=== PATIENT | female | born 1990 | race Hispanic/Latino ===

== ENCOUNTER 2025-08-10 11:03 | Emergency (ER) | payer SELFPAY ==
--- NOTE | 2025-08-10 11:35 | RAD REPORT ---
EXAM: CT brain without contrast HISTORY: DIZZINESS COMPARISON: None TECHNIQUE: Multiple contiguous axial images were obtained and a CT of the brain without contrast. Sag ittal and coronal reformats were performed. One or more of the following dose reduction techniques were used: Automated exposure control, adjust ment of the mA and/or kV according to patient size, and/or iterative reconstruction. FINDINGS: No evidence of hydrocephalus, intracranial hemorrhage, or extra-axial fluid collection. The brain is normal in morphology. No evidence of midline shift or areas of brain edema. The calvarium is intact. The visualized paranasal sinuses and mastoid air cells are essentially clear . IMPRESSION: No evidence of acute intracranial abnormality.
--- NOTE | 2025-08-10 12:06 | RAD REPORT ---
EXAMINATION: ONE VIEW CHEST XR CLINICAL INDICATION: CHEST PAIN TECHNIQUE: Frontal chest projection is submitted. Examination is limited by patient positioning and t echnique. COMPARISON: No prior exam. FINDINGS: The lungs are well inflated and clear. The heart is upper limit of normal in size. No displaced fract ures identified. IMPRESSION: No acute intrathoracic abnormalities.
[2025-08-10] MEDS ORDERED: NA CHLORIDE 0.9% 1,000 ML ONE (12:20)
[2025-08-10] MEDS ORDERED: ONDANSETRON 4 MG/2 ML VIAL ONE (12:20)
[2025-08-10 12:31] LABS: Absolute Lymphocytes (CBC) 1.9 K/uL (0.7-4.9); Hematocrit 34.1 % (36.0-45.0); Hemoglobin 11.0 g/dL (12.0-15.0); MCH 25.7 pg (27.0-35.0); MCHC 32.2 g/dL (32.0-36.0); MCV 79.8 fL (80-100); MPV 7.5 fL (7.6-11.3); Nucleated RBC Absolute Count 0.0 (0-0); Nucleated Red Blood Cells % 0.0 % (0-0); RBC Red Blood Cell Count 4.27 M/uL (3.86-4.86); White Blood Count 10.10 thou/uL (4.3-10.9)
[2025-08-10 12:52] LABS: Anion Gap 7.7 mEq/L (5.0-15.0); BUN Blood Urea Nitrogen 10 mg/dL (7-18); Glucose Level 100 mg/dL (74-106); Potassium 3.7 mEq/L (3.5-5.1)
[2025-08-10 12:53] LABS: Troponin High Sensitivity < 3.0 pg/mL (<58.9)
--- NOTE | 2025-08-10 13:24 | EDPHYS ---
Physician Documentation [facility] Name: Gina Jay Age: 34 yrs Sex: Female : 1990 Arrival Date: 08/10/2025 Time: 11:03 Bed 8 Private MD: ED Physician Darya Gandhi HPI: 08/10 11:15 This 34 yrs old Female presents to ER via Unassigned with complaints of dr5 Dizziness, Nausea, Headache. 11:15 The patient presents with dizziness, generalized weakness. Onset: The symptoms/episode dr5 began/occurred 3 day(s) ago. Patient is a 34-year-old female with history of anxiety coming in with 3 days of intermittent dizziness, headache, nausea, vomiting. Patient reports that she has history of anxiety and this feels different. Patient also reports intermittent chest pain that lasts seconds and then improves. Patient reports take ibuprofen for headache that improves her headache. Last menstrual period was 2 weeks ago. Patient states that she has some sick contacts at work but does not know what they have.. 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 - Social history:: Smoking status: Patient denies any tobacco usage or history of. Patient/guardian denies using alcohol, street drugs. - Infectious Disease History:: Denies. ROS: 11:16 Constitutional: as per hpi dr5 Exam: 11:16 Constitutional: This is a well developed, well nourished patient who is awake, alert, dr5 and in no acute distress. Head/Face: Normocephalic, atraumatic. Eyes: Pupils equal round and reactive to light, extra-ocular motions intact. Lids and lashes normal. Conjunctiva and sclera are non-icteric and not injected. Cornea within normal limits. Periorbital areas with no swelling, redness, or edema. Neck: Trachea midline, no thyromegaly or masses palpated, and no cervical lymphadenopathy. Supple, full range of motion without nuchal rigidity, or vertebral point tenderness. No Meningismus. Chest/axilla: Normal chest wall appearance and motion. Nontender with no deformity. No lesions are appreciated. Cardiovascular: Regular rate and rhythm with a normal S1 and S2. Normal PMI, no JVD. No pulse deficits. Respiratory: Lungs have equal breath sounds bilaterally, clear to auscultation. No rales, rhonchi or wheezes noted. No increased work of breathing, no retractions or nasal flaring. Back: No spinal tenderness. No costovertebral tenderness. Full range of motion. Skin: Warm, dry with normal turgor. Normal color with no rashes, no lesions, and no evidence of cellulitis. MS/ Extremity: Pulses equal, no cyanosis. Neurovascular intact. Full, normal range of motion. Neuro: Awake and alert, GCS 15, oriented to person, place, time, and situation. Cranial nerves II-XII grossly intact. Motor strength 5/5 in all extremities. Sensory grossly intact. Cerebellar exam normal. Normal gait. Vital Signs: 11:52 BP 145 / 94; Pulse 95; Resp 16; Temp 97.8(O); Pulse Ox 100% on R/A; Weight 83.91 kg; ss Height 5 ft. 0 in. ; 12:47 BP 108 / 66; Pulse 97; Resp 17; Pulse Ox 99% on R/A; ap3 13:42 BP 108 / 61; Pulse 91; Resp 17; Pulse Ox 100% on R/A; ss 11:52 Body Mass Index 36.13 (83.91 kg, 152.4 cm) ss NIH Stroke Scale Scores: 11:16 NIHSS Score: 0 dr5 MDM: 11:06 Medical Screening Exam initiated dr5 13:46 Differential diagnosis: idiopathic dizziness, near-syncope, syncope, vertigo, NSTEMI, dr5 anemia, acute kidney injury, pneumonia, anxiety. Data reviewed: vital signs, nurses notes, lab test result(s), CBC, white blood cell count, hemoglobin, hematocrit, platelets, electrolytes, sodium, potassium, chloride, serum bicarbonate, BUN, creatinine, serum glucose, EKG, radiologic studies, CT scan, plain films. Consideration of Admission/Observation Escalation of care including admission/observation considered. Escalation considered patient did not feel better and/ or had abnormality on CT scan or blood work. I considered the following discharge prescriptions or medication management in the emergency department I discussed and recommended Over The Counter medications, Medications were administered in the Emergency Department. See MAR. Independent interpretation of the following test(s) in the Emergency Department CT Scan: My interpretation is Independent interpretation of CT scan does not reveal intracranial hemorrhage. Care significantly affected by the following chronic conditions: Anxiety. Care significantly affected by the following Social Determinants of Health: Poor access to healthcare and/or lack of insurance, Poor access to transportation, Problems related to employment. Counseling: I had a detailed discussion with the patient and/or guardian regarding the historical points, exam findings, and any diagnostic results supporting the discharge/admit diagnosis, the presence of at least one elevated blood pressure reading (>120/80) during this emergency department visit, lab results, radiology results, the need for outpatient follow up, for definitive care, a family practitioner, to return to the emergency department if symptoms worsen or persist or if there are any questions or concerns that arise at home. Medication response: Normal saline. Response to treatment: the patient's symptoms have markedly improved after treatment. Special discussion: I discussed with the patient/guardian in detail that at this point there is no indication for admission to the hospital. It is understood, however, that if the symptoms persist or worsen the patient needs to return immediately for re-evaluation. Based on the history and exam findings, there is no indication for further emergent testing or inpatient evaluation. I discussed with the patient/guardian the need to see the primary care provider for further evaluation of the symptoms. ED course: Patient reports he is feeling much better. Will give patient meclizine to try for vertigo. All labs, diagnostic studies including x-ray and CT scan were printed and given to patient to take with her to primary care doctor. All questions answered. Patient states that today is the anniversary of her mother's birthday when all her chest pain started. Patient reports feeling better and is ready for discharge. Strict ER precautions given.. 08/10 11:15 Order name: Basic Metabolic Panel; Complete Time: 12:53 08/10 11:15 Order name: CBC with Diff; Complete Time: 12:41 08/10 11:15 Order name: Troponin HS; Complete Time: 12:53 dr5 08/10 11:15 Order name: XRAY Chest (1 view); Complete Time: 12:07 dr5 08/10 11:15 Order name: CT Head Brain wo Cont; Complete Time: 11:37 08/10 11:15 Order name: EKG; Complete Time: 11:15 08/10 11:15 Order name: Cardiac monitoring; Complete Time: 12:29 08/10 11:15 Order name: EKG - Nurse/Tech; Complete Time: 12: dr5 08/10 11:15 Order name: IV Saline Lock; Complete Time: 12: dr5 08/10 11:15 Order name: Labs collected and sent; Complete Time: 12: dr5 08/10 11:15 Order name: O2 Per Protocol; Complete Time: 12:08/10 11:15 Order name: O2 Sat Monitoring; Complete Time: 12: dr5 EC: Rate is 77 beats/min. Rhythm is regular. QRS [place] is Normal. [place] interval is normal at dr5 126 msec. QRS interval is normal at 92 msec. QT interval is normal at 416 msec. Clinical impression: Normal ECG and No evidence of ischemia. Administered Medications: 12:20 Drug: NS 0.9% IV 1000 ml IV at 1000 ml once; to be given as a bolus over 60 minutes ap3 Route: IV; Rate: 1000 ml; Site: right antecubital; 13:42 Follow up: IV Status: Completed infusion; IV Intake: 1000ml ss 12:22 Drug: Ondansetron IVP 4 mg IVP once; over 2 minutes Route: IVP; Site: right antecubital;aa5 13:42 Follow up: Response: No adverse reaction; Nausea is decreased ss Disposition Summary: 08/10/25 13:23 Discharge Ordered Notes: Location: Home dr5 Condition: Stable dr5 Diagnosis - Nausea with vomiting, unspecified dr5 - Headache dr5 Followup: dr5 - With: Emergency Department - When: As needed - Reason: Worsening of condition Followup: dr5 - With: Private Physician - When: As needed - Reason: Worsening of condition Discharge Instructions: - Discharge Summary Sheet dr5 - Nausea and Vomiting, Adult dr5 - Vertigo dr5 Forms: - Medication Reconciliation Form dr5 - Patient Portal Instructions dr5 - Leadership Thank You Letter dr5 Prescriptions: - Meclizine 25 mg Oral Tablet - take 1 tablet ORAL route every 8 hours As needed; 30 tablet; Refills: 0, dr5 Product Selection Permitted NIH Stroke Scale - NIH Stroke Score Date: 08/10/2025 Time: 11:16 Total Score = 0 10. Dysarthria (speech clarity - read or repeat words) - 0(Normal) 11. Extinction and Inattention (visual/tactile/auditory/spatial/personal) - 0(No abnormality) 1a. Level of Consciousness (LOC) - 0(Alert) 1b. Level of Consciousness (LOC) (Month \T\ Age) - 0(Both) 1c. LOC Commands (Open \T\ Closes Eyes/Lead Electrician) - 0(Both) 2. Best Gaze (Lateral Gaze Paresis) - 0(Normal) 3. Visual Field Loss - 0(No visual loss) 4. Facial Palsy - 0(Normal) 5a. Left Arm: Motor (10-second hold) - 0(No drift) 5b. Right Arm: Motor (10-second hold) - 0(No drift) 6a. Left Leg: Motor (5-second hold - always test supine) - 0(No drift) 6b. Right Leg: Motor (5-second hold - always test supine) - 0(No drift) 7. Limb Ataxia (finger/nose \T\ heel/pratt - test with eyes open) - 0(Absent) 8. Sensory Loss (pinprick arms/legs/face) - 0(Normal) 9. Best Language: Aphasia (description/naming/reading) - 0(No aphasia) Initials: dr5 Signatures: Dispatcher [employer] EDNidia Aj RN RN aa5 Malorie Talavera RN RN ss Prokisch, Amanda, RN RN ap3 Yovany Gallego, AEROSOL SUPERVISOR-C AEROSOL SUPERVISOR-Cdr5 Corrections: (The following items were deleted from the chart) 11:16 11:16 PMHx: None; dr5 dr5
--- NOTE | 2025-08-10 13:24 | ER ---
Nurse's Notes [facility] Name: Gina Jay Age: 34 yrs Sex: Female : 1990 Arrival Date: 08/10/2025 Time: 11:03 Bed 8 Private MD: Diagnosis: Nausea with vomiting, unspecified;Headache Presentation: 08/10 11:52 Chief complaint: Patient states: [place] x 2 days, N/V. Coronavirus screen: Client denies ss travel out of the [place] in the last 14 days. Ebola Screen: Patient denies exposure to infectious person. Patient denies travel to an Ebola-affected area in the 21 days before illness onset. Initial Sepsis Screen: Does the patient meet any 2 criteria? No. Patient's initial sepsis screen is negative. Does the patient have a suspected source of infection? No. Patient's initial sepsis screen is negative. Risk Assessment: Do you want to hurt yourself or someone else? Patient reports no desire to harm self or others. Onset of symptoms was August 08, 2025. 11:52 Method Of Arrival: Ambulatory ss 11:52 Acuity: HOMER 3 ss Triage Assessment: 13:41 General: Behavior is calm, cooperative, appropriate for age. General: Appears in no ss apparent distress. 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 - Social history:: Smoking status: Patient denies any tobacco usage or history of. Patient/guardian denies using alcohol, street drugs. - Infectious Disease History:: Denies. Screenin:47 [facility] ED Fall Risk Assessment (Adult) History of falling in the last 3 months, ap3 including since admission No falls in past 3 months (0 pts) Confusion or Disorientation No (0 pts) Intoxicated or Sedated No (0 pts) Impaired Gait No (0 pts) Mobility Assist Device Used No (0 pt) Altered Elimination No (0 pt) Score/Fall Risk Level 0 - 2 = Low Risk Oriented to surroundings, Maintained a safe environment, Educated pt \T\ family on fall prevention, incl call for assistance when getting out of bed, Assessed \T\ reinforced patient's understanding of fall precautions, Hourly rounding (assess needs \T\ fall precautionary measures) done, Used ambulatory aids as needed (educated on \T\ assisted with). Abuse screen: Denies threats or abuse. Nutritional screening: No deficits noted. Tuberculosis screening: No symptoms or risk factors identified. Assessment: 12:46 Reassessment: Patient and/or family updated on plan of care and expected duration. Pain ap3 level reassessed. Patient is alert, oriented x 3, equal unlabored respirations, skin warm/dry/pink. General: Appears in no apparent distress. Pain: Complains of pain in head. Neuro: Level of Consciousness is awake, alert, obeys commands, Oriented to person, place, time, situation, Appropriate for age Reports headache. Cardiovascular: Patient's skin is warm and dry. Respiratory: Airway is patent Respiratory effort is even, unlabored, Respiratory pattern is regular, symmetrical. GI: Abdomen is non-distended, Reports nausea. Vital Signs: 11:52 BP 145 / 94; Pulse 95; Resp 16; Temp 97.8(O); Pulse Ox 100% on R/A; Weight 83.91 kg; ss Height 5 ft. 0 in. ; 12:47 BP 108 / 66; Pulse 97; Resp 17; Pulse Ox 99% on R/A; ap3 13:42 BP 108 / 61; Pulse 91; Resp 17; Pulse Ox 100% on R/A; ss 11:52 Body Mass Index 36.13 (83.91 kg, 152.4 cm) ss NIH Stroke Scale Scores: 11:16 NIHSS Score: 0 dr5 ED Course: 11:05 Patient arrived in ED. al6 11:06 Yovany Gallego, JAYME-C is PHCP. dr5 11:06 Darya Gandhi MD is Attending Physician. dr5 11:25 CT Head Brain wo Cont In Process Unspecified. EDMS 11:52 Arm band placed on right wrist. ss 11:53 Triage completed. ss 11:56 XRAY Chest (1 view) In Process Unspecified. EDMS 12:20 Initial lab(s) drawn, by me, sent to lab. Inserted saline lock: 22 gauge in right ap3 antecubital area, using aseptic technique. Blood collected. Flushed with 10 mL NS. 12:35 EKG done, by ED staff, reviewed by Yovany THOMPSON. ap3 12:47 No provider procedures requiring assistance completed. ap3 13:41 Patient has correct armband on for positive identification. Placed in gown. Bed in low ss position. Call light in reach. Side rails up X 1. Provided Education on: discharge instructions . 13:41 IV discontinued, intact, bleeding controlled, No redness/swelling at site. Pressure ss dressing applied. Administered Medications: 12:20 Drug: NS 0.9% IV 1000 ml IV at 1000 ml once; to be given as a bolus over 60 minutes ap3 Route: IV; Rate: 1000 ml; Site: right antecubital; 13:42 Follow up: IV Status: Completed infusion; IV Intake: 1000ml ss 12:22 Drug: Ondansetron IVP 4 mg IVP once; over 2 minutes Route: IVP; Site: right antecubital;aa5 13:42 Follow up: Response: No adverse reaction; Nausea is decreased ss Medication: 13:42 VIS not applicable for this client. ss Intake: 13:42 IV: 1000ml; Total: 1000ml. ss Outcome: 13:23 Discharge ordered by . dr5 13:41 Discharged to home ambulatory, ss 13:41 Condition: good 13:41 Discharge instructions given to patient, Instructed on discharge instructions, follow up and referral plans. medication usage, Demonstrated understanding of instructions, follow-up care, medications, Prescriptions given X 1, 13:58 Patient left the ED. ss NIH Stroke Scale - NIH Stroke Score Date: 08/10/2025 Time: 11:16 Total Score = 0 10. Dysarthria (speech clarity - read or repeat words) - 0(Normal) 11. Extinction and Inattention (visual/tactile/auditory/spatial/personal) - 0(No abnormality) 1a. Level of Consciousness (LOC) - 0(Alert) 1b. Level of Consciousness (LOC) (Month \T\ Age) - 0(Both) 1c. LOC Commands (Open \T\ Closes Eyes/Order Processing Clerk) - 0(Both) 2. Best Gaze (Lateral Gaze Paresis) - 0(Normal) 3. Visual Field Loss - 0(No visual loss) 4. Facial Palsy - 0(Normal) 5a. Left Arm: Motor (10-second hold) - 0(No drift) 5b. Right Arm: Motor (10-second hold) - 0(No drift) 6a. Left Leg: Motor (5-second hold - always test supine) - 0(No drift) 6b. Right Leg: Motor (5-second hold - always test supine) - 0(No drift) 7. Limb Ataxia (finger/nose \T\ heel/pratt - test with eyes open) - 0(Absent) 8. Sensory Loss (pinprick arms/legs/face) - 0(Normal) 9. Best Language: Aphasia (description/naming/reading) - 0(No aphasia) Initials: dr5 Signatures: Dispatcher [employer] EDMT Nidia Flores, RN RN aa5 Malorie Talavera RN RN ss Rosita Pacheco RN RN ap3 Yovany Gallego, FINAL RAIL CUTTER-C FINAL RAIL CUTTER-[facility]5 Sherita Putnam Corrections: (The following items were deleted from the chart) 11:16 11:16 PMHx: None; dr5 dr5 14:08 12:03 Nidia Flores, RN is Primary Nurse. aa5 aa5
[2025-08-10 14:47] VITALS: TEMP 97.8
[2025-08-10 15:10] VITALS: BP 108/61; O2SAT 100
== END 2025-08-10 13:58 | disposition home or self-care (01) ==
LOC: ER 11:03
DX: R11.2 Nausea with vomiting, unspecified (principal); R51.9 Headache, unspecified
CPT/HCPCS: 36415; 70450; 71045; 80048; 84484; 85025; 93005; 96361; 96374; 99284; J2405; J7030